=== PATIENT | male | born 1990 | race African-American/Black ===

== ENCOUNTER 2021-11-06 10:54 | Emergency (ER) | payer SELFPAY ==
[~2021-11-06] VITALS: Ht 175.3 cm; Wt 91.0 kg
[2021-11-06] MEDS ORDERED: TETANUS, DIPHTHERIA, PERTUSSIS VAC/PF 0.5ML (>10YR OLD) IM ONE (11:15)
[2021-11-06] MEDS ORDERED: HYDROCODONE/ACETAMINOPHEN 5/325MG TABLET PO ONE (11:15)
[2021-11-06] MEDS ORDERED: BACITRACIN ZINC OINT UDPKT TOP ONE (11:15)
[2021-11-06] MEDS ORDERED: LIDOCAINE HCL/EPINEPHRINE 1%-EPI 1:100,000 20 ML VIAL INFIL ONE (11:15)
[2021-11-06 11:42] VITALS: BP 129/86
[2021-11-06] MEDS ORDERED: BO1 TP (13:54)
== END 2021-11-06 15:11 | disposition home or self-care (01) ==
LOC: ER 10:54
DX: S71.111A Laceration without foreign body, right thigh, initial encounter (principal); X58.XXXA Exposure to other specified factors, initial encounter; Y93.89 Activity, other specified; Y92.89 Other specified places as the place of occurrence of the external cause; Y99.8 Other external cause status; F17.290 Nicotine dependence, other tobacco product, uncomplicated; F12.10 Cannabis abuse, uncomplicated
CPT/HCPCS: 73552; 90471; 90715; 99283; J3490

== ENCOUNTER 2022-08-04 22:32 | Emergency (ER) | payer MEDICAID ==
[~2022-08-04] VITALS: Ht 175.3 cm; Wt 92.9 kg
[~2022-08-04 22:32] MED LIST: BO1 TP
[2022-08-04] MEDS ORDERED: LIDOCAINE HCL/PF 1% 10 MG/ML 5ML VIAL INFIL ONE (23:45)
[2022-08-04] MEDS ORDERED: IBUPROFEN 600MG TABLET PO ONE (23:45)
[2022-08-04] MEDS ORDERED: BACITRACIN ZINC OINT UDPKT TOP ONE (23:45)
[2022-08-05 00:06] VITALS: BP 131/91
[2022-08-05] MEDS ORDERED: BO1 TP (00:45)
[2022-08-05] MEDS ORDERED: IBUP-2029 MT (00:45)
== END 2022-08-05 01:05 | disposition home or self-care (01) ==
LOC: ER 22:32
DX: S41.112A Laceration without foreign body of left upper arm, initial encounter (principal); W45.8XXA Other foreign body or object entering through skin, initial encounter; Y93.89 Activity, other specified; Y92.89 Other specified places as the place of occurrence of the external cause; Y99.8 Other external cause status; F12.10 Cannabis abuse, uncomplicated; Z88.0 Allergy status to penicillin
CPT/HCPCS: 12002; 99283; J3490

== ENCOUNTER 2022-08-26 15:15 | Emergency (ER) | payer MEDICAID ==
[~2022-08-26] VITALS: Ht 177.8 cm; Wt 100.0 kg
[~2022-08-26 15:15] MED LIST changes: +IBUP-2029 MT
[2022-08-26 15:37] VITALS: BP 138/91
== END 2022-08-26 18:58 | disposition left against medical advice (07) ==
LOC: ER 15:15
DX: Z53.21 Procedure and treatment not carried out due to patient leaving prior to being seen by health care provider (principal)

== ENCOUNTER 2023-02-20 17:18 | Emergency (ER) | payer MEDICAID ==
[~2023-02-20] VITALS: Ht 175.3 cm; Wt 96.0 kg
[2023-02-20 17:29] VITALS: BP 146/84
[2023-02-20] MEDS ORDERED: IBUPROFEN 400MG TABLET PO ONE (19:00)
== END 2023-02-20 20:22 | disposition left against medical advice (07) ==
LOC: ER 17:18
DX: S09.90XA Unspecified injury of head, initial encounter (principal); Y08.89XA Assault by other specified means, initial encounter; Y93.89 Activity, other specified; Y92.89 Other specified places as the place of occurrence of the external cause; Y99.8 Other external cause status; M54.2 Cervicalgia; F12.10 Cannabis abuse, uncomplicated
CPT/HCPCS: 99284

== ENCOUNTER 2023-07-19 01:03 | Emergency (ER) | payer MEDICAID ==
[~2023-07-19] VITALS: Ht 175.3 cm; Wt 100.0 kg
[2023-07-19 01:31] VITALS: BP 130/75; O2SAT 99
[2023-07-19] MEDS ORDERED: AMOX1TAB16 MT (02:25)
[2023-07-19 02:48] VITALS: PULSE 89; RESP 18; TEMP 98
== END 2023-07-19 02:36 | disposition left against medical advice (07) ==
LOC: ER 01:03
DX: S41.152A Open bite of left upper arm, initial encounter (principal); F12.10 Cannabis abuse, uncomplicated; Z88.0 Allergy status to penicillin; W54.0XXA Bitten by dog, initial encounter; Y93.89 Activity, other specified; Y92.89 Other specified places as the place of occurrence of the external cause; Y99.8 Other external cause status
CPT/HCPCS: 99283; Z7610 ×4

== ENCOUNTER 2023-11-01 09:11 | Emergency (ER) | payer MEDICAID ==
[~2023-11-01] VITALS: Ht 175.3 cm; Wt 95.3 kg
[~2023-11-01 09:11] MED LIST changes: +AMOX1TAB16 MT
[2023-11-01 09:19] VITALS: O2SAT 100
[2023-11-01] MEDS ORDERED: LIDOCAINE HCL/PF 1% 10 MG/ML 5ML VIAL INFIL ONE (10:15)
[2023-11-01] MEDS ORDERED: TETANUS, DIPHTHERIA, PERTUSSIS VAC/PF 0.5ML (>10YR OLD) IM ONE (10:15)
[2023-11-01] MEDS ORDERED: BACITRACIN ZINC OINT UDPKT TOP ONE (10:15)
[2023-11-01] MEDS ORDERED: CEPH500T MT ×2 (11:28)
[2023-11-01] MEDS ORDERED: DOXY100T2 MT (11:29)
[2023-11-01] MEDS ORDERED: KETOROLAC 30MG/ML VIAL IM ONE (11:45)
[2023-11-01 12:03] VITALS: BP 127/83
[2023-11-01 12:05] VITALS: PULSE 88; RESP 14; TEMP 98.1
== END 2023-11-01 12:06 | disposition home or self-care (01) ==
LOC: ER 09:11
DX: L03.012 Cellulitis of left finger (principal)
CPT/HCPCS: 90715; 10060; 90471; 96372; 99284; J3490; Z7610 ×4

== ENCOUNTER 2024-08-15 19:54 | Emergency (ER) | payer MEDICAID ==
[~2024-08-15] VITALS: Ht 175.3 cm; Wt 95.5 kg
[~2024-08-15 19:54] MED LIST changes: +DOXY100T2 MT
[2024-08-15 20:52] VITALS: O2SAT 100
[2024-08-15] MEDS: IBUPROFEN 600MG TABLET PO ONE (21:32)
[2024-08-15 22:16] VITALS: BP 136/86; PULSE 71; RESP 18; TEMP 37.00296; O2SAT 100
== END 2024-08-15 22:17 | disposition home or self-care (01) ==
LOC: ER 19:54
DX: S62.607A Fracture of unspecified phalanx of left little finger, initial encounter for closed fracture (principal); F12.10 Cannabis abuse, uncomplicated; Z88.0 Allergy status to penicillin; Z79.899 Other long term (current) drug therapy; Y08.89XA Assault by other specified means, initial encounter; Y93.89 Activity, other specified; Y92.89 Other specified places as the place of occurrence of the external cause; Y99.8 Other external cause status
CPT/HCPCS: 73140; 29125; 99283; Z7610